=== PATIENT | female | born 1995 | race African-American/Black ===

== ENCOUNTER 2017-04-19 09:12 | Emergency (ER) | payer BC ==
--- NOTE | 2017-04-19 09:58 | ER Document Report ---
ED Medical Screen (RME) - General Chief Complaint: Headache Stated Complaint: FLU LIKE SYMPTOMS Time Seen by Provider: 04/19/17 09:52 Mode of Arrival: Ambulatory Information source: Relative Cannot obtain history due to: Mentally challenged TRAVEL OUTSIDE OF THE [place] IN LAST 30 DAYS: No - HPI Onset: Other - FLU SXS x 3 DAYS, H.A. FOR 1 MONTH OR MORE, GRADUALLY INCREASING Quality of pain: Achy, Dull Associated Symptoms: Body/muscle aches, Cough (nonproductive), Fever, Headache Recently seen / treated by doctor: No - Related Data Allergies/Adverse Reactions: iodine Allergy (Verified 04/19/17 09:14) Penicillins Allergy (Verified 04/19/17 09:14) Physical Exam - Vital signs Vitals: Temp Pulse Resp BP Pulse Ox 98.5 F 78 20 139/68 H 99 04/19/17 09:17 04/19/17 09:17 04/19/17 09:17 04/19/17 09:17 04/19/17 09:17 Interpretation: Hypertensive. No: Tachypneic, Febrile - General General appearance: Other - APPEARS UNCOMFORTABLE, RESTLESS. - HEENT Head: Normocephalic Eyes: Normal Conjunctiva: Normal Ears: Normal Nasal: Normal Mouth/Lips: Normal Mucous membranes: Normal - Respiratory Respiratory status: No respiratory distress Breath sounds: Normal - Cardiovascular Rhythm: Regular Course - Vital Signs Vital signs: Temp Pulse Resp BP Pulse Ox 98.5 F 78 20 139/68 H 99 04/19/17 09:17 04/19/17 09:17 04/19/17 09:17 04/19/17 09:17 04/19/17 09:17
--- NOTE | 2017-04-19 10:27 | RADIOLOGY REPORT (SQ) ---
EXAM DESCRIPTION: CT HEAD WITHOUT COMPLETED DATE/TIME: 04/19/2017 10:15 am REASON FOR STUDY: HEADACHE FOR 1 MONTH, INCREASING COMPARISON: None. TECHNIQUE: Axial images acquired through the brain without intravenous contrast. Images reviewed wi th bone, brain and subdural windows. Images stored on PACS. All CT scanners at this facility use dose modulation, iterative reconstruction, and/or weight based d osing when appropriate to reduce radiation dose to as low as reasonably achievable (ALARA). [facility]: Dose Right [facility]: CareDose [facility]: Dose Right [facility]: Teradose 4D [facility]: Smart [employer] RADIATION DOSE: CT Rad equipment meets quality standard of care and radiation dose reduction techniq ues were employed. CTDIvol: 64.6 mGy. DLP: 1163 mGy-cm.1162.97mGy. LIMITATIONS: None. FINDINGS: VENTRICLES: Normal size and contour. CEREBRUM: Intracranially, no abnormal areas of increased decreased attenuation noted. There is no ma ss effect or shift. No intracranial hemorrhage. CEREBELLUM: No masses. No hemorrhage. No alteration of density. No evidence for acute infarction. EXTRAAXIAL SPACES: No fluid collections. No masses. ORBITS AND GLOBE: No intra- or extraconal masses. Normal contour of globe without masses. CALVARIUM: No fracture. PARANASAL SINUSES: Mucosal thickening within the right maxillary sinus, both ethmoid sinuses ,and sph enoid sinus. SOFT TISSUES: No mass or hematoma. OTHER: No other significant finding. IMPRESSION: MINIMAL CHRONIC SINUSITIS. NORMAL BRAIN CT WITHOUT CONTRAST. EVIDENCE OF ACUTE STROKE: NO. COMMENT: Quality ID # [id number]: Final reports with documentation of one or more dose reduction techniques (e.g., Automated exposure control, adjustment of the mA and/or kV according to patient size, use of iterative reconstruction technique) TECHNICAL DOCUMENTATION: JOB ID: [id number] [place]-69 2010 [employer]- All Rights Reserved
[2017-04-19 10:36] LABS: ABSOLUTE EOSINOPHILS # (AUTO) 0.1 10^3/uL (0.0-0.6); ABSOLUTE LYMPHOCYTES (AUTO) 1.2 10^3/uL (0.5-4.7); ABSOLUTE MONOCYTES (AUTO) 0.6 10^3/uL (0.1-1.4); ABSOLUTE NEUT (AUTO) 1.4 10^3/uL (1.7-8.2); BASOPHILS % (AUTO) 0.8 % (0-2); EOSINOPHILS % (AUTO) 2.4 % (0-6); HEMATOCRIT 40.1 % (36.0-47.0); LYMPHOCYTES % (AUTO) 35.9 % (13-45); MEAN CORPUSCULAR HEMOGLOBIN 23.2 pg (27.0-33.4); MEAN CORPUSCULAR HGB CONC 32.3 g/dL (32.0-36.0); MEAN CORPUSCULAR VOLUME 72 fl (80-97); MONOCYTES % (AUTO) 18.9 % (3-13); PLATELET COUNT 230 10^3/uL (150-450); RED BLOOD COUNT 5.59 10^6/uL (3.72-5.28); RED CELL DISTRIBUTION WIDTH 14.9 % (11.5-14.0); TOTAL CELLS COUNTED % (AUTO) 100 %; WHITE BLOOD COUNT 3.3 10^3/uL (4.0-10.5)
[2017-04-19 10:54] LABS: A TYPE INFLUENZA AG NEGATIVE (NEGATIVE); B INFLUENZA AG NEGATIVE (NEGATIVE)
[2017-04-19 10:59] LABS: ALANINE AMINOTRANSFERASE 33 U/L (9-52); ALBUMIN 4.4 g/dL (3.5-5.0); ALKALINE PHOSPHATASE 55 U/L (38-126); ANION GAP 12 (5-19); ASPARTATE AMINO TRANSFERASE 26 U/L (14-36); BILIRUBIN,DIRECT 0.3 mg/dL (0.0-0.4); BILIRUBIN,TOTAL 0.3 mg/dL (0.2-1.3); BLOOD UREA NITROGEN 12 mg/dL (7-20); CALCIUM 9.4 mg/dL (8.4-10.2); CARBON DIOXIDE 25 mmol/L (22-30); CHLORIDE 102 mmol/L (98-107); GLUCOSE 93 mg/dL (75-110); POTASSIUM 4.3 mmol/L (3.6-5.0); SODIUM 139.1 mmol/L (137-145); TOTAL PROTEIN 7.2 g/dL (6.3-8.2)
[2017-04-19] MEDS ORDERED: PROCHLORPERAZINE MALEATE 5 MG TABLET PO ONE (11:38)
--- NOTE | 2017-04-19 11:39 | ER Document Report ---
ED General - General Chief Complaint: Headache Stated Complaint: FLU LIKE SYMPTOMS Time Seen by Provider: 04/19/17 09:52 Mode of Arrival: Ambulatory TRAVEL OUTSIDE OF THE [place] IN LAST 30 DAYS: No - HPI Patient complains to provider of: Flulike symptoms headache Notes: Patient coming in with a history of Asperger's ADHD recently moved to [place] been present in [place] for approximately 2 weeks patient has flulike symptoms. Patient came from [facility]. Does not have a established PCP. States compliant with medications patient has been on inhaler according to the caregiver at bedside. Use inhaler approximately 3-4 times a day. States intermittent fevers controlled with Tylenol and Motrin. Ms. complaint is that the patient has had a headache. Headache gradually increasing over the last month to month and a half. No trauma. Upon my evaluation patient is resting comfortably and baseline according to caregiver. Patient was to be no I stressed playing on cell phone and coloring pictures. - Related Data Allergies/Adverse Reactions: iodine Allergy (Verified 04/19/17 09:14) Penicillins Allergy (Verified 04/19/17 09:14) Past Medical History - General Information source: Relative - Social History Smoking Status: Never Smoker Frequency of alcohol use: Rare Drug Abuse: None Family History: Reviewed & Not Pertinent Patient has suicidal ideation: No Patient has homicidal ideation: No Renal/ Medical History: Denies: Hx Peritoneal Dialysis Psychiatric Medical History: Reports: Hx Attention Deficit Hyperactivity Disorder, Hx Bipolar Disorder Review of Systems - Review of Systems Constitutional: No symptoms reported EENT: Other - Flulike symptoms Cardiovascular: No symptoms reported Respiratory: No symptoms reported Gastrointestinal: No symptoms reported Genitourinary: No symptoms reported Female Genitourinary: No symptoms reported Musculoskeletal: No symptoms reported Skin: No symptoms reported Hematologic/Lymphatic: No symptoms reported Neurological/Psychological: No symptoms reported -: Yes All other systems reviewed and negative Physical Exam - Vital signs Vitals: Temp Pulse Resp BP Pulse Ox 98.5 F 78 20 139/68 H 99 04/19/17 09:17 04/19/17 09:17 04/19/17 09:17 04/19/17 09:17 04/19/17 09:17 Interpretation: Normal - General General appearance: Appears well, Alert - HEENT Head: Normocephalic, Atraumatic Eyes: Normal Pupils: PERRL - Respiratory Respiratory status: No respiratory distress Chest status: Nontender Breath sounds: Normal Chest palpation: Normal - Cardiovascular Rhythm: Regular Heart sounds: Normal auscultation Murmur: No - Abdominal Inspection: Normal Distension: No distension Bowel sounds: Normal Tenderness: Nontender Organomegaly: No organomegaly - Back Back: Normal, Nontender - Extremities General upper extremity: Normal inspection, Nontender, Normal color, Normal ROM , Normal temperature General lower extremity: Normal inspection, Nontender, Normal color, Normal ROM , Normal temperature, Normal weight bearing. No: Deonna's sign - Neurological Neuro grossly intact: Yes Cognition: Normal Orientation: AAOx4 [place] Coma Scale Eye Opening: Spontaneous [place] Coma Scale Verbal: Oriented [place] Coma Scale Motor: Obeys Commands [place] Coma Scale Total: 15 Speech: Normal Motor strength normal: LUE, RUE, LLE, RLE Sensory: Normal - Psychological Associated symptoms: Normal affect, Normal mood - Skin Skin Temperature: Warm Skin Moisture: Dry Skin Color: Normal Course - Re-evaluation Re-evalutation: 04/19/17 15:26 The patient presents with headache without signs of MANAGER CONTACT bleed, stroke, infection , or other serious etiology. The patient is neurologically intact. Given the extremely low risk of these diagnoses further testing and evaluation for these possibilities does not appear to be indicated at this time. The patient has been instructed to return if the symptoms worsen or change in any way.. Patient was given seen for slight nausea. No vomiting seen here in ER. Patient otherwise does not have any serious pathology seen laboratory studies and/or his examination will be discharged on follow-up with local PCP. - Vital Signs Vital signs: Temp Pulse Resp BP Pulse Ox 98.5 F 78 20 139/68 H 99 04/19/17 09:17 04/19/17 09:17 04/19/17 09:17 04/19/17 09:17 04/19/17 09:17 - Laboratory Result Diagrams: 04/19/17 10:10 04/19/17 10:10 Laboratory results interpreted by me: 04/19/17 10:10 WBC 3.3 L RBC 5.59 H MCV 72 L MCH 23.2 L RDW 14.9 H Monocytes % 18.9 H Absolute Neutrophils 1.4 L Discharge - Discharge Clinical Impression: Flu-like symptoms Headache Qualifiers: Headache type: unspecified Headache chronicity pattern: unspecified pattern Intractability: not intractable Qualified Code(s): R51 - Headache Condition: Good Instructions: Family Physicians / Practices, Headache ([facility]), Nausea or Vomiting , Nonspecific ([facility]), Neurologist, Viral Syndrome ([facility]) Additional Instructions: Your CAT scan today does not show any acute pathology. Your laboratory studies also did not show any acute pathology. Her ocular symptoms as far as nausea vomiting shortness of breath related to a viral illness. Please continue to use your inhaler at home 2 puffs every 2-4 hours. I would also recommend using the Compazine as prescribed for nausea and he can use it outside for headaches. Continue to take Tylenol and Motrin. Highly recommend following up with a family physician and also following up with a neurologist to perform further evaluation of your headaches. Prescriptions: Prochlorperazine Maleate [Compazine] 5 mg PO Q6 #30 tablet
[2017-04-19 12:00] VITALS: BP 116/73
[2017-04-19 13:24] LABS: APPEARANCE,URINE SLIGHTLY-CLOUDY; BILIRUBIN,URINE NEGATIVE (NEGATIVE); COLOR,URINE STRAW; GLUCOSE, URINE NEGATIVE (NEGATIVE); KETONES,URINE NEGATIVE (NEGATIVE); LEUKOCYTE ESTERASE,URINE NEGATIVE (NEGATIVE); NITRITE,URINE NEGATIVE (NEGATIVE); PROTEIN,URINE NEGATIVE (NEGATIVE); URINE SPECIFIC GRAVITY 1.006; UROBILINOGEN,URINE NEGATIVE mg/dL (<2.0)
== END 2017-04-19 12:00 | disposition home or self-care (01) ==
LOC: ER 09:12
DX: R51 Headache (principal); Z88.0 Allergy status to penicillin
CPT/HCPCS: 99284; 36415; 85025; 80053; 81001; 87804; 70450; S0183